=== PATIENT | female | born 1960 | race Caucasian/White ===

== ENCOUNTER → 2018-07-11 | Day surgery (SDC) | payer BC ==
[~2018-07-11] MED LIST: Dextrose 5%-0.45% NaCl 1,000 ML IV SCH; Midazolam 1 MG/ML 2 ML SDV IV ONE; Midazolam 1 MG/ML 2 ML SDV ONE; Sodium Chloride 0.9% 10 ML Syringe FLUSH PRN; fentaNYL 100 MCG/2 ML SDV IV ONE; fentaNYL 100 MCG/2 ML SDV ONE
--- NOTE | 2018-07-11 09:13 | OR ---
DATE: 07/11/2018 PROCEDURE DONE: Flexible sigmoidoscopy and biopsies. INSTRUMENT USED: CF-H180AL Olympus video colonoscope. PREMEDICATIONS: Done after EGD. INDICATION: The patient with known inflammatory bowel disease with recent rectal bleeding and iron-deficiency anemia. Flexible sigmoidoscopic examination is done for detection of any polypoid lesions and also to assess any evidence for IBD. Endoscopic hemostasis therapy if needed. Initial rectal exam was unremarkable. Rigid anoscopy was normal. DESCRIPTION OF PROCEDURE: The colonoscope was passed with ease up to proximal sigmoid colon. No bleeding was noted from any of the visualized areas at the commencement of the examination. Some solid fecal material was noted. No stricture. No vascular ectasia. No large or isolated ulcerations seen. No evidence of diffuse inflammatory bowel disease in the form of friability, contact bleeding, or ulcerations. No polyp or tumor mass identified. Multiple pinch biopsies were obtained from the sigmoid and rectal mucosa and sent for histopathology. No bleeding was noted from any of the visualized areas at the completion of examination. IMPRESSION: Normal study. The patient tolerated the procedure well. [facility] /[id number]
--- NOTE | 2018-07-11 09:13 | OR ---
DATE: 07/11/2018 PROCEDURES PERFORMED: Esophagogastroduodenoscopy, NBI, and multiple pinch biopsies and brush biopsy for cytology. INSTRUMENT USED: GIF-H180 Olympus video panendoscope. PREMEDICATIONS: No oral or topical anesthesia used. Fentanyl 100 mcg intravenous, Versed 2 mg intravenous. The procedure was done under pulse oximetry, BP recording, and hall monitor. INDICATION: The patient with gastrointestinal bleeding and iron-deficiency anemia. Esophagogastroduodenoscopy is performed for detection of any active erosive lesions, malignancy also under consideration, H. pylori status to be determined, small bowel biopsies to be obtained for celiac disease, endoscopic hemostasis therapy if needed. DESCRIPTION OF PROCEDURE: The scope was passed with ease. Adequate visualization of the esophagus was made from proximal to distal areas. No upper esophageal lesions identified. No distal esophageal stricture. No uphill or downhill esophageal varices. No Radha-Nolasco tear. No evidence of erosive esophagitis by Duchesne criteria. No esophageal polyp or tumor mass identified. Sliding hiatal hernia was noted. No proximal gastric varices noted. Gastric fundus examination by retroflexion showed no polypoid lesions. Gastric stump showed no polyp or malignant mass. No vascular ectasia identified. The anastomotic area showed large, benign-appearing ulcer without bleeding from it. NBI views were taken. Photographs were obtained. Numerous pinch biopsies, 6 in number, were taken from different areas of the ulcer, and brush biopsy for cytology was taken. Visualized loops of the small bowel were unremarkable. Multiple pinch biopsies, 4 in number, were taken from different areas of the duodenum and sent for any histopathologic evidence of celiac disease. Multiple pinch biopsies were also taken from the distal and proximal gastric mucosa and sent for PyloriTek test for H. pylori and histopathology. Photographs were taken of the gastric fundus and distal esophagus. No bleeding was noted from any of the visualized areas at the completion of examination. IMPRESSION: 1. Sliding hiatal hernia. 2. Anastomotic ulcer. The patient tolerated the procedure well. [facility] /[id number]
[2018-07-11 13:08] VITALS: BP 140/76
== END | disposition home or self-care (01) ==
LOC: DL.ENDO 07:02
PROVIDERS: ATTEND Internal Medicine Gastroenterology
DX: K25.9 Gastric ulcer, unspecified as acute or chronic, without hemorrhage or perforation (principal); D50.9 Iron deficiency anemia, unspecified; K44.9 Diaphragmatic hernia without obstruction or gangrene; K52.9 Noninfective gastroenteritis and colitis, unspecified; Z91.14 Patient's other noncompliance with medication regimen
CPT/HCPCS: 43239; 45331; 87077; J2250; J3010; J7042